=== PATIENT | male | born 1990 | race Caucasian/White ===

== ENCOUNTER 2020-07-23 14:40 | Emergency (ER) | payer OTHER ==
[2020-07-23 14:55] VITALS: BP 143/83; PULSE 85; TEMP 98.1; BMI 26.1
[2020-07-23] MEDS ORDERED: ACETAMINOPHEN 1000 MG/100 ML VIAL (NON FORMULARY) IVPB ONE (15:46)
[2020-07-23] MEDS ORDERED: SODIUM CHLORIDE 0.9% 500 ML INFUS.BAG IV ONE (15:46)
[2020-07-23] MEDS ORDERED: ACETAMINOPHEN INJECTION 100 ML IVPB ONE (15:49)
[2020-07-23 16:20] LABS: BASO % 0.6 % (0-2.0); EOS % 0.7 % (0-4.5); HEMATOCRIT 49.1 % (35.4-49); HEMOGLOBIN 16.5 GM/dL (11.7-16.9); LYMPH % 33.4 % (8-40); MCH 30.3 pg (25.7-33.7); MCHC 33.6 g/dl (32.0-35.9); MEAN CELL VOLUME 90.2 fl (80-96); MONO % 7.8 % (3.8-10.2); NEUT % 57.5 % (42.8-82.8); PLATELET COUNT 258 K/MM3 (134-434); RBC 5.44 M/mm3 (4.00-5.60); RDW 12.4 % (11.9-15.9); WHITE BLOOD COUNT 5.8 K/mm3 (4.0-10.0)
[2020-07-23 16:30] LABS: POTASSIUM 4.1 mmol/L (3.5-5.1)
[2020-07-23 16:32] LABS: CALCIUM 8.4 mg/dL (8.5-10.1)
[2020-07-23 16:33] LABS: BLOOD UREA NITROGEN 9.2 mg/dL (7-18)
[2020-07-23 16:34] LABS: URINE APPEARANCE CLEAR; URINE BILIRUBIN NEGATIVE (NEGATIVE); URINE COLOR YELLOW; URINE GLUCOSE (UA) NEGATIVE (NEGATIVE); URINE KETONE NEGATIVE (NEGATIVE); URINE LEUK ESTERASE NEGATIVE (NEGATIVE); URINE NITRITE NEGATIVE (NEGATIVE); URINE PROTEIN NEGATIVE (NEGATIVE)
[2020-07-23 16:37] LABS: BILIRUBIN,TOTAL 0.6 mg/dL (0.2-1); TOT PROT 7.3 g/dl (6.4-8.2)
[2020-07-23 16:55] LABS: INR 1.08 (0.83-1.09)
[2020-07-23 16:57] LABS: ACTIVATED PTT 35.1 SECONDS (25.2-36.5)
== END 2020-07-23 18:37 | disposition home or self-care (01) ==
LOC: JER 14:40
PROC: 3E033NZ Introduction of Analgesics, Hypnotics, Sedatives into Peripheral Vein, Percutaneous Approach (ICD-10-PCS; principal; 2020-07-23)
DX: R10.9 Unspecified abdominal pain (principal)
CPT/HCPCS: 36415; 74177-TC; 76870-TC; 80053; 81003; 83690; 85025; 85610; 85730; 86850; 86900; 86901; 87086; 99285-25; J0131; Q9967